=== PATIENT | male | born 1965 | race Caucasian/White ===

== ENCOUNTER 2017-09-04 02:25 | Outpatient (CLI) | payer SELFPAY | END 2017-09-04 02:26 | disposition home or self-care (01) | LOC: BICRAD 02:25 | PROVIDERS: ATTEND Nurse Practitioner Family | DX: M25.561 Pain in right knee (principal) ==

== ENCOUNTER 2017-10-05 08:00 | Outpatient (CLI) | payer BC | END 2017-10-05 08:01 | disposition home or self-care (01) | LOC: BICMRI 08:00 | PROVIDERS: ATTEND Specialist | DX: M17.11 Unilateral primary osteoarthritis, right knee (principal); S83.241A Other tear of medial meniscus, current injury, right knee, initial encounter; M76.51 Patellar tendinitis, right knee; M22.41 Chondromalacia patellae, right knee ==

== ENCOUNTER 2018-02-15 09:40 | Outpatient (CLI) | payer BC | END 2018-02-15 09:41 | disposition home or self-care (01) | LOC: BICRAD 09:40 | PROVIDERS: ATTEND Specialist | DX: M54.6 Pain in thoracic spine (principal); M41.9 Scoliosis, unspecified | CPT/HCPCS: 72070; 72081 ==

== ENCOUNTER 2018-06-10 12:38 | Outpatient (CLI) | payer BC | END 2018-06-10 12:39 | disposition home or self-care (01) | LOC: BICRAD 12:38 | PROVIDERS: ATTEND Chiropractor | DX: M54.2 Cervicalgia (principal); M47.892 Other spondylosis, cervical region; M25.78 Osteophyte, vertebrae | CPT/HCPCS: 72040 ==